=== PATIENT | male | born 1930 | race Caucasian/White ===

== ENCOUNTER → 2016-07-19 | Outpatient (CLI) | payer OTHER ==
[~2016-07-19] MED LIST: ASPIRIN81 M2; AZOR 10-40 MG1 EACH; BYSTOLIC10 MG; CYMBALTA60 MG; DEPAKOTE ER500 MG; MIRAPEX 0.250.25 M1; NEXIUM 40 MG CA40 M1; PRADAXA75 MG; PRESERVISION T1 EACH; SEPTRA DS; SIMVASTATIN20 MG; TRIGLIDE160 M1
== END ==
LOC: HYPER 06:56
DX: L89.620 Pressure ulcer of left heel, unstageable (principal); L97.821 Non-pressure chronic ulcer of other part of left lower leg limited to breakdown of skin; I10 Essential (primary) hypertension; I73.9 Peripheral vascular disease, unspecified

== ENCOUNTER → 2016-10-12 | Outpatient (CLI) | payer OTHER | LOC: HYPER 07:07 | DX: L89.620 Pressure ulcer of left heel, unstageable (principal); L97.521 Non-pressure chronic ulcer of other part of left foot limited to breakdown of skin; L97.501 Non-pressure chronic ulcer of other part of unspecified foot limited to breakdown of skin; I73.9 Peripheral vascular disease, unspecified; I10 Essential (primary) hypertension; I48.2 Chronic atrial fibrillation; E78.5 Hyperlipidemia, unspecified; Z85.828 Personal history of other malignant neoplasm of skin; Z87.891 Personal history of nicotine dependence ==

== ENCOUNTER → 2016-11-25 | Outpatient (CLI) | payer OTHER | LOC: HYPER 07:54 | DX: L89.620 Pressure ulcer of left heel, unstageable (principal); L97.521 Non-pressure chronic ulcer of other part of left foot limited to breakdown of skin; L97.821 Non-pressure chronic ulcer of other part of left lower leg limited to breakdown of skin; I73.9 Peripheral vascular disease, unspecified; I10 Essential (primary) hypertension; I48.91 Unspecified atrial fibrillation; E78.5 Hyperlipidemia, unspecified; Z85.828 Personal history of other malignant neoplasm of skin; Z87.891 Personal history of nicotine dependence ==

== ENCOUNTER → 2016-12-23 | Outpatient (CLI) | payer OTHER | LOC: HYPER 08:21 | DX: L97.521 Non-pressure chronic ulcer of other part of left foot limited to breakdown of skin (principal); L89.620 Pressure ulcer of left heel, unstageable; I73.9 Peripheral vascular disease, unspecified; I10 Essential (primary) hypertension; I48.91 Unspecified atrial fibrillation; E78.5 Hyperlipidemia, unspecified; Z87.891 Personal history of nicotine dependence; Z85.828 Personal history of other malignant neoplasm of skin ==

== ENCOUNTER → 2017-01-20 | Outpatient (CLI) | payer OTHER | LOC: HYPER 08:06 | DX: L97.821 Non-pressure chronic ulcer of other part of left lower leg limited to breakdown of skin (principal); L97.521 Non-pressure chronic ulcer of other part of left foot limited to breakdown of skin; L89.620 Pressure ulcer of left heel, unstageable; I10 Essential (primary) hypertension; I73.9 Peripheral vascular disease, unspecified; I48.91 Unspecified atrial fibrillation; E78.5 Hyperlipidemia, unspecified; Z85.828 Personal history of other malignant neoplasm of skin; Z87.891 Personal history of nicotine dependence ==

== ENCOUNTER → 2017-02-17 | Outpatient (CLI) | payer OTHER | LOC: HYPER 08:13 | DX: L97.521 Non-pressure chronic ulcer of other part of left foot limited to breakdown of skin (principal); L97.821 Non-pressure chronic ulcer of other part of left lower leg limited to breakdown of skin; L89.620 Pressure ulcer of left heel, unstageable; I10 Essential (primary) hypertension; I73.9 Peripheral vascular disease, unspecified; I48.91 Unspecified atrial fibrillation; E78.5 Hyperlipidemia, unspecified; Z87.891 Personal history of nicotine dependence ==

== ENCOUNTER → 2017-03-14 | Outpatient (CLI) | payer OTHER | LOC: RAD 15:04 | DX: M25.551 Pain in right hip (principal) ==

== ENCOUNTER → 2017-03-14 | Outpatient (CLI) | payer OTHER | LOC: HYPER 07:02 | DX: L97.821 Non-pressure chronic ulcer of other part of left lower leg limited to breakdown of skin (principal); L97.521 Non-pressure chronic ulcer of other part of left foot limited to breakdown of skin; L89.620 Pressure ulcer of left heel, unstageable; I73.9 Peripheral vascular disease, unspecified; I10 Essential (primary) hypertension; I48.91 Unspecified atrial fibrillation; E78.5 Hyperlipidemia, unspecified; Z87.891 Personal history of nicotine dependence ==

== ENCOUNTER → 2017-04-11 | Outpatient (CLI) | payer OTHER | LOC: HYPER 07:18 | DX: L97.521 Non-pressure chronic ulcer of other part of left foot limited to breakdown of skin (principal); L89.620 Pressure ulcer of left heel, unstageable; I73.9 Peripheral vascular disease, unspecified; I10 Essential (primary) hypertension; I48.91 Unspecified atrial fibrillation; E78.5 Hyperlipidemia, unspecified ==

== ENCOUNTER → 2017-05-16 | Outpatient (CLI) | payer OTHER | LOC: HYPER 06:43 | DX: L97.521 Non-pressure chronic ulcer of other part of left foot limited to breakdown of skin (principal); L89.620 Pressure ulcer of left heel, unstageable; I10 Essential (primary) hypertension; I73.9 Peripheral vascular disease, unspecified; I48.91 Unspecified atrial fibrillation; E78.5 Hyperlipidemia, unspecified; Z85.828 Personal history of other malignant neoplasm of skin; Z87.891 Personal history of nicotine dependence ==

== ENCOUNTER → 2017-07-20 | Outpatient (CLI) | payer OTHER ==
[~2017-07-20] MED LIST changes: +ACIDOPHILUS1 EAC2 PO; +CYMBALTA60 MG PO; +DEPAKOTE 250MG250 M1 PO; +FLOMAX0.4 MG PO; +KEFLEX500 M1 PO; +LASIX 40 MG TAB40 M2 PO; +LIPITOR 20 MG T20 M1 PO; +MAGOX 400400 MG PO; +METOPROLOL SUCC25 M1 PO; +MILK OF MA2400 MG/10 PO; +MIRAPEX0.125 MG PO; +ONDANSETRON HCL4 M2 PO; +PENTOXIFYLLINE400 MG PO; +PERCOCET 10-321 EACH PO; +PRADAXA75 MG PO; +PRESERVISION T1 EACH PO; +PROTONIX40 M1 PO; +REMERON15 MG PO; +TOPROL XL25 MG PO; +TRIGLIDE160 M1 PO; +ULTRACET TABLET1 TAB PO; +VITAMIN C500 M2 PO; +VOLTAREN GEL 1100 G2 TOP
== END ==
LOC: HYPER 06-12 08:08
DX: L89.622 Pressure ulcer of left heel, stage 2 (principal); L97.522 Non-pressure chronic ulcer of other part of left foot with fat layer exposed; L97.421 Non-pressure chronic ulcer of left heel and midfoot limited to breakdown of skin; I48.91 Unspecified atrial fibrillation; E78.5 Hyperlipidemia, unspecified; I73.9 Peripheral vascular disease, unspecified; Z87.891 Personal history of nicotine dependence

== ENCOUNTER → 2017-07-25 | Outpatient (CLI) | payer OTHER | LOC: HYPER 06:40 | DX: L97.522 Non-pressure chronic ulcer of other part of left foot with fat layer exposed (principal); L97.421 Non-pressure chronic ulcer of left heel and midfoot limited to breakdown of skin; I73.9 Peripheral vascular disease, unspecified; E78.5 Hyperlipidemia, unspecified; I10 Essential (primary) hypertension; I48.91 Unspecified atrial fibrillation; Z85.828 Personal history of other malignant neoplasm of skin; Z87.891 Personal history of nicotine dependence ==

== ENCOUNTER → 2017-08-16 | Outpatient (CLI) | payer OTHER | LOC: HYPER 06:49 | DX: L89.622 Pressure ulcer of left heel, stage 2 (principal); L97.421 Non-pressure chronic ulcer of left heel and midfoot limited to breakdown of skin; L97.521 Non-pressure chronic ulcer of other part of left foot limited to breakdown of skin; L89.891 Pressure ulcer of other site, stage 1; I73.9 Peripheral vascular disease, unspecified; I48.91 Unspecified atrial fibrillation; I10 Essential (primary) hypertension; E78.5 Hyperlipidemia, unspecified; Z85.828 Personal history of other malignant neoplasm of skin; Z87.891 Personal history of nicotine dependence ==

== ENCOUNTER → 2017-08-30 | Outpatient (CLI) | payer OTHER | LOC: HYPER 06:57 | DX: L97.521 Non-pressure chronic ulcer of other part of left foot limited to breakdown of skin (principal); L97.421 Non-pressure chronic ulcer of left heel and midfoot limited to breakdown of skin; I73.9 Peripheral vascular disease, unspecified; I48.91 Unspecified atrial fibrillation; I10 Essential (primary) hypertension; E78.5 Hyperlipidemia, unspecified; Z85.828 Personal history of other malignant neoplasm of skin; Z72.89 Other problems related to lifestyle ==

== ENCOUNTER → 2017-09-14 | Outpatient (CLI) | payer OTHER | LOC: HYPER 07:05 | DX: L97.522 Non-pressure chronic ulcer of other part of left foot with fat layer exposed (principal); L97.421 Non-pressure chronic ulcer of left heel and midfoot limited to breakdown of skin; I73.9 Peripheral vascular disease, unspecified; I48.91 Unspecified atrial fibrillation; I10 Essential (primary) hypertension; E78.5 Hyperlipidemia, unspecified; Z85.828 Personal history of other malignant neoplasm of skin; Z87.891 Personal history of nicotine dependence; Z72.89 Other problems related to lifestyle ==

== ENCOUNTER → 2017-09-29 | Outpatient (CLI) | payer OTHER | LOC: HYPER 07:50 | DX: L89.622 Pressure ulcer of left heel, stage 2 (principal); L89.520 Pressure ulcer of left ankle, unstageable; L97.522 Non-pressure chronic ulcer of other part of left foot with fat layer exposed; L97.421 Non-pressure chronic ulcer of left heel and midfoot limited to breakdown of skin; I73.9 Peripheral vascular disease, unspecified; Z47.89 Encounter for other orthopedic aftercare; I48.91 Unspecified atrial fibrillation; I12.9 Hypertensive chronic kidney disease with stage 1 through stage 4 chronic kidney disease, or unspecified chronic kidney disease; N18.3 Chronic kidney disease, stage 3 (moderate); K21.9 Gastro-esophageal reflux disease without esophagitis; Z85.828 Personal history of other malignant neoplasm of skin; Z87.891 Personal history of nicotine dependence ==

== ENCOUNTER → 2017-10-10 | Outpatient (CLI) | payer OTHER | LOC: HYPER 08:00 | DX: L89.622 Pressure ulcer of left heel, stage 2 (principal); L89.520 Pressure ulcer of left ankle, unstageable; L97.522 Non-pressure chronic ulcer of other part of left foot with fat layer exposed; L97.421 Non-pressure chronic ulcer of left heel and midfoot limited to breakdown of skin; L84 Corns and callosities; I12.9 Hypertensive chronic kidney disease with stage 1 through stage 4 chronic kidney disease, or unspecified chronic kidney disease; N18.3 Chronic kidney disease, stage 3 (moderate); I48.91 Unspecified atrial fibrillation; E78.5 Hyperlipidemia, unspecified; I73.9 Peripheral vascular disease, unspecified; K21.9 Gastro-esophageal reflux disease without esophagitis; Z87.891 Personal history of nicotine dependence ==

== ENCOUNTER → 2017-11-08 | Outpatient (CLI) | payer OTHER | LOC: HYPER 10-24 06:55 | DX: I70.244 Atherosclerosis of native arteries of left leg with ulceration of heel and midfoot (principal); L97.421 Non-pressure chronic ulcer of left heel and midfoot limited to breakdown of skin; L97.522 Non-pressure chronic ulcer of other part of left foot with fat layer exposed; I70.243 Atherosclerosis of native arteries of left leg with ulceration of ankle; L97.321 Non-pressure chronic ulcer of left ankle limited to breakdown of skin; L84 Corns and callosities; I12.9 Hypertensive chronic kidney disease with stage 1 through stage 4 chronic kidney disease, or unspecified chronic kidney disease; N18.3 Chronic kidney disease, stage 3 (moderate); I48.2 Chronic atrial fibrillation; E78.5 Hyperlipidemia, unspecified; K21.9 Gastro-esophageal reflux disease without esophagitis; Z85.828 Personal history of other malignant neoplasm of skin; Z87.891 Personal history of nicotine dependence; Z47.89 Encounter for other orthopedic aftercare ==

== ENCOUNTER → 2017-11-16 | Outpatient (CLI) | payer OTHER | LOC: HYPER 06:51 | DX: L97.522 Non-pressure chronic ulcer of other part of left foot with fat layer exposed (principal); L97.421 Non-pressure chronic ulcer of left heel and midfoot limited to breakdown of skin; I73.9 Peripheral vascular disease, unspecified; I12.9 Hypertensive chronic kidney disease with stage 1 through stage 4 chronic kidney disease, or unspecified chronic kidney disease; N18.3 Chronic kidney disease, stage 3 (moderate); I48.91 Unspecified atrial fibrillation; K21.9 Gastro-esophageal reflux disease without esophagitis; Z87.891 Personal history of nicotine dependence ==

== ENCOUNTER → 2017-11-29 | Outpatient (CLI) | payer OTHER | LOC: HYPER 07:09 | DX: I70.244 Atherosclerosis of native arteries of left leg with ulceration of heel and midfoot (principal); L97.421 Non-pressure chronic ulcer of left heel and midfoot limited to breakdown of skin; L97.522 Non-pressure chronic ulcer of other part of left foot with fat layer exposed; I70.243 Atherosclerosis of native arteries of left leg with ulceration of ankle; L97.321 Non-pressure chronic ulcer of left ankle limited to breakdown of skin; I48.91 Unspecified atrial fibrillation; E78.5 Hyperlipidemia, unspecified; K21.9 Gastro-esophageal reflux disease without esophagitis; I12.9 Hypertensive chronic kidney disease with stage 1 through stage 4 chronic kidney disease, or unspecified chronic kidney disease; N18.3 Chronic kidney disease, stage 3 (moderate); Z47.89 Encounter for other orthopedic aftercare; Z87.891 Personal history of nicotine dependence ==

== ENCOUNTER → 2017-12-13 | Outpatient (CLI) | payer OTHER | LOC: HYPER 06:49 | DX: I70.244 Atherosclerosis of native arteries of left leg with ulceration of heel and midfoot (principal); L97.421 Non-pressure chronic ulcer of left heel and midfoot limited to breakdown of skin; L97.522 Non-pressure chronic ulcer of other part of left foot with fat layer exposed; I70.243 Atherosclerosis of native arteries of left leg with ulceration of ankle; L97.321 Non-pressure chronic ulcer of left ankle limited to breakdown of skin; L84 Corns and callosities; I12.9 Hypertensive chronic kidney disease with stage 1 through stage 4 chronic kidney disease, or unspecified chronic kidney disease; N18.3 Chronic kidney disease, stage 3 (moderate); E78.5 Hyperlipidemia, unspecified; K21.9 Gastro-esophageal reflux disease without esophagitis; Z47.89 Encounter for other orthopedic aftercare; Z85.828 Personal history of other malignant neoplasm of skin; Z87.891 Personal history of nicotine dependence ==

== ENCOUNTER → 2017-12-26 | Outpatient (CLI) | payer OTHER | LOC: HYPER 06:51 | DX: I70.245 Atherosclerosis of native arteries of left leg with ulceration of other part of foot (principal); L97.422 Non-pressure chronic ulcer of left heel and midfoot with fat layer exposed; L97.522 Non-pressure chronic ulcer of other part of left foot with fat layer exposed; I70.243 Atherosclerosis of native arteries of left leg with ulceration of ankle; L97.321 Non-pressure chronic ulcer of left ankle limited to breakdown of skin; I12.9 Hypertensive chronic kidney disease with stage 1 through stage 4 chronic kidney disease, or unspecified chronic kidney disease; N18.3 Chronic kidney disease, stage 3 (moderate); I48.91 Unspecified atrial fibrillation; E78.5 Hyperlipidemia, unspecified; K21.9 Gastro-esophageal reflux disease without esophagitis; Z87.891 Personal history of nicotine dependence; Z47.89 Encounter for other orthopedic aftercare ==

== ENCOUNTER → 2018-01-11 | Outpatient (CLI) | payer OTHER | LOC: HYPER 06:49 | DX: I70.244 Atherosclerosis of native arteries of left leg with ulceration of heel and midfoot (principal); L97.421 Non-pressure chronic ulcer of left heel and midfoot limited to breakdown of skin; I70.245 Atherosclerosis of native arteries of left leg with ulceration of other part of foot; L97.521 Non-pressure chronic ulcer of other part of left foot limited to breakdown of skin; I70.243 Atherosclerosis of native arteries of left leg with ulceration of ankle; L97.321 Non-pressure chronic ulcer of left ankle limited to breakdown of skin; S91.101A Unspecified open wound of right great toe without damage to nail, initial encounter; S81.801A Unspecified open wound, right lower leg, initial encounter; S51.002A Unspecified open wound of left elbow, initial encounter; I13.10 Hypertensive heart and chronic kidney disease without heart failure, with stage 1 through stage 4 chronic kidney disease, or unspecified chronic kidney disease; N18.3 Chronic kidney disease, stage 3 (moderate); L84 Corns and callosities; I48.91 Unspecified atrial fibrillation; E78.5 Hyperlipidemia, unspecified; K21.9 Gastro-esophageal reflux disease without esophagitis; Z85.828 Personal history of other malignant neoplasm of skin; Z87.891 Personal history of nicotine dependence; X58.XXXA Exposure to other specified factors, initial encounter; Y93.89 Activity, other specified; Y92.89 Other specified places as the place of occurrence of the external cause; Y99.8 Other external cause status ==

== ENCOUNTER → 2018-03-28 | Outpatient (CLI) | payer OTHER | LOC: HYPER 07:11 | DX: I70.244 Atherosclerosis of native arteries of left leg with ulceration of heel and midfoot (principal); L97.422 Non-pressure chronic ulcer of left heel and midfoot with fat layer exposed; I70.245 Atherosclerosis of native arteries of left leg with ulceration of other part of foot; L97.522 Non-pressure chronic ulcer of other part of left foot with fat layer exposed; I70.243 Atherosclerosis of native arteries of left leg with ulceration of ankle; L97.321 Non-pressure chronic ulcer of left ankle limited to breakdown of skin; L97.812 Non-pressure chronic ulcer of other part of right lower leg with fat layer exposed; L97.512 Non-pressure chronic ulcer of other part of right foot with fat layer exposed; I48.2 Chronic atrial fibrillation; I12.9 Hypertensive chronic kidney disease with stage 1 through stage 4 chronic kidney disease, or unspecified chronic kidney disease; N18.3 Chronic kidney disease, stage 3 (moderate); E78.5 Hyperlipidemia, unspecified; G25.81 Restless legs syndrome; K21.9 Gastro-esophageal reflux disease without esophagitis; L84 Corns and callosities; Z87.891 Personal history of nicotine dependence ==

== ENCOUNTER → 2018-04-25 | Outpatient (CLI) | payer OTHER | LOC: HYPER 06:46 | DX: I70.244 Atherosclerosis of native arteries of left leg with ulceration of heel and midfoot (principal); L97.422 Non-pressure chronic ulcer of left heel and midfoot with fat layer exposed; I70.245 Atherosclerosis of native arteries of left leg with ulceration of other part of foot; L97.522 Non-pressure chronic ulcer of other part of left foot with fat layer exposed; I70.243 Atherosclerosis of native arteries of left leg with ulceration of ankle; L97.321 Non-pressure chronic ulcer of left ankle limited to breakdown of skin; L97.512 Non-pressure chronic ulcer of other part of right foot with fat layer exposed; L97.812 Non-pressure chronic ulcer of other part of right lower leg with fat layer exposed; L84 Corns and callosities; E78.5 Hyperlipidemia, unspecified; I48.2 Chronic atrial fibrillation; I10 Essential (primary) hypertension; G25.81 Restless legs syndrome; K21.9 Gastro-esophageal reflux disease without esophagitis; N18.3 Chronic kidney disease, stage 3 (moderate); Z87.891 Personal history of nicotine dependence ==

== ENCOUNTER → 2018-05-23 | Outpatient (CLI) | payer OTHER | LOC: HYPER 06:53 | DX: I70.245 Atherosclerosis of native arteries of left leg with ulceration of other part of foot (principal); L97.522 Non-pressure chronic ulcer of other part of left foot with fat layer exposed; I70.235 Atherosclerosis of native arteries of right leg with ulceration of other part of foot; L97.512 Non-pressure chronic ulcer of other part of right foot with fat layer exposed; I70.244 Atherosclerosis of native arteries of left leg with ulceration of heel and midfoot; L97.422 Non-pressure chronic ulcer of left heel and midfoot with fat layer exposed; I70.243 Atherosclerosis of native arteries of left leg with ulceration of ankle; L97.322 Non-pressure chronic ulcer of left ankle with fat layer exposed; L97.812 Non-pressure chronic ulcer of other part of right lower leg with fat layer exposed; N18.3 Chronic kidney disease, stage 3 (moderate); S91.109D Unspecified open wound of unspecified toe(s) without damage to nail, subsequent encounter; S80.812D Abrasion, left lower leg, subsequent encounter; I48.2 Chronic atrial fibrillation; E78.5 Hyperlipidemia, unspecified; I12.9 Hypertensive chronic kidney disease with stage 1 through stage 4 chronic kidney disease, or unspecified chronic kidney disease; K21.9 Gastro-esophageal reflux disease without esophagitis; Z87.891 Personal history of nicotine dependence; X58.XXXD Exposure to other specified factors, subsequent encounter ==

== ENCOUNTER → 2018-07-04 | Outpatient (CLI) | payer OTHER | LOC: HYPER 06:38 | DX: I70.244 Atherosclerosis of native arteries of left leg with ulceration of heel and midfoot (principal); L97.422 Non-pressure chronic ulcer of left heel and midfoot with fat layer exposed; I70.245 Atherosclerosis of native arteries of left leg with ulceration of other part of foot; L97.522 Non-pressure chronic ulcer of other part of left foot with fat layer exposed; I70.243 Atherosclerosis of native arteries of left leg with ulceration of ankle; L97.321 Non-pressure chronic ulcer of left ankle limited to breakdown of skin; L97.512 Non-pressure chronic ulcer of other part of right foot with fat layer exposed; S91.002A Unspecified open wound, left ankle, initial encounter; L84 Corns and callosities; E78.5 Hyperlipidemia, unspecified; G25.81 Restless legs syndrome; I12.9 Hypertensive chronic kidney disease with stage 1 through stage 4 chronic kidney disease, or unspecified chronic kidney disease; N18.3 Chronic kidney disease, stage 3 (moderate); I48.2 Chronic atrial fibrillation; K21.9 Gastro-esophageal reflux disease without esophagitis; Z87.891 Personal history of nicotine dependence; X58.XXXA Exposure to other specified factors, initial encounter; Y93.89 Activity, other specified; Y92.89 Other specified places as the place of occurrence of the external cause; Y99.8 Other external cause status ==

== ENCOUNTER → 2018-08-15 | Outpatient (CLI) | payer OTHER | LOC: HYPER 08-01 15:48 | DX: I70.244 Atherosclerosis of native arteries of left leg with ulceration of heel and midfoot (principal); L97.422 Non-pressure chronic ulcer of left heel and midfoot with fat layer exposed; I70.245 Atherosclerosis of native arteries of left leg with ulceration of other part of foot; L97.526 Non-pressure chronic ulcer of other part of left foot with bone involvement without evidence of necrosis; L97.812 Non-pressure chronic ulcer of other part of right lower leg with fat layer exposed; I70.243 Atherosclerosis of native arteries of left leg with ulceration of ankle; L97.321 Non-pressure chronic ulcer of left ankle limited to breakdown of skin; L97.516 Non-pressure chronic ulcer of other part of right foot with bone involvement without evidence of necrosis; L84 Corns and callosities; E78.5 Hyperlipidemia, unspecified; G25.81 Restless legs syndrome; I12.9 Hypertensive chronic kidney disease with stage 1 through stage 4 chronic kidney disease, or unspecified chronic kidney disease; N18.3 Chronic kidney disease, stage 3 (moderate); I48.2 Chronic atrial fibrillation; K21.9 Gastro-esophageal reflux disease without esophagitis; Z87.891 Personal history of nicotine dependence ==

== ENCOUNTER → 2018-09-12 | Outpatient (CLI) | payer OTHER | LOC: HYPER 06:40 | DX: I70.244 Atherosclerosis of native arteries of left leg with ulceration of heel and midfoot (principal); L97.422 Non-pressure chronic ulcer of left heel and midfoot with fat layer exposed; I70.245 Atherosclerosis of native arteries of left leg with ulceration of other part of foot; L97.522 Non-pressure chronic ulcer of other part of left foot with fat layer exposed; I70.243 Atherosclerosis of native arteries of left leg with ulceration of ankle; L97.321 Non-pressure chronic ulcer of left ankle limited to breakdown of skin; L97.512 Non-pressure chronic ulcer of other part of right foot with fat layer exposed; L97.812 Non-pressure chronic ulcer of other part of right lower leg with fat layer exposed; S51.011A Laceration without foreign body of right elbow, initial encounter; L84 Corns and callosities; I48.2 Chronic atrial fibrillation; E78.5 Hyperlipidemia, unspecified; I12.9 Hypertensive chronic kidney disease with stage 1 through stage 4 chronic kidney disease, or unspecified chronic kidney disease; N18.9 Chronic kidney disease, unspecified; K21.9 Gastro-esophageal reflux disease without esophagitis; R56.9 Unspecified convulsions; Z87.891 Personal history of nicotine dependence; X58.XXXA Exposure to other specified factors, initial encounter; Y93.89 Activity, other specified; Y92.89 Other specified places as the place of occurrence of the external cause; Y99.8 Other external cause status; S61.212A Laceration without foreign body of right middle finger without damage to nail, initial encounter ==

== ENCOUNTER → 2018-10-10 | Outpatient (CLI) | payer OTHER | LOC: HYPER 07:03 | DX: I70.244 Atherosclerosis of native arteries of left leg with ulceration of heel and midfoot (principal); L97.422 Non-pressure chronic ulcer of left heel and midfoot with fat layer exposed; L97.526 Non-pressure chronic ulcer of other part of left foot with bone involvement without evidence of necrosis; L97.512 Non-pressure chronic ulcer of other part of right foot with fat layer exposed; S51.811D Laceration without foreign body of right forearm, subsequent encounter; S90.424D Blister (nonthermal), right lesser toe(s), subsequent encounter; E78.5 Hyperlipidemia, unspecified; I48.2 Chronic atrial fibrillation; I12.9 Hypertensive chronic kidney disease with stage 1 through stage 4 chronic kidney disease, or unspecified chronic kidney disease; N18.3 Chronic kidney disease, stage 3 (moderate); G25.81 Restless legs syndrome; H40.9 Unspecified glaucoma; K21.9 Gastro-esophageal reflux disease without esophagitis; Z87.891 Personal history of nicotine dependence; Z90.49 Acquired absence of other specified parts of digestive tract; X58.XXXD Exposure to other specified factors, subsequent encounter ==

== ENCOUNTER → 2018-11-13 | Outpatient (CLI) | payer OTHER | LOC: HYPER 06:14 | DX: I70.244 Atherosclerosis of native arteries of left leg with ulceration of heel and midfoot (principal); L97.422 Non-pressure chronic ulcer of left heel and midfoot with fat layer exposed; I70.245 Atherosclerosis of native arteries of left leg with ulceration of other part of foot; L97.526 Non-pressure chronic ulcer of other part of left foot with bone involvement without evidence of necrosis; I70.235 Atherosclerosis of native arteries of right leg with ulceration of other part of foot; L97.516 Non-pressure chronic ulcer of other part of right foot with bone involvement without evidence of necrosis; S91.104A Unspecified open wound of right lesser toe(s) without damage to nail, initial encounter; L84 Corns and callosities; I12.9 Hypertensive chronic kidney disease with stage 1 through stage 4 chronic kidney disease, or unspecified chronic kidney disease; N18.3 Chronic kidney disease, stage 3 (moderate); E78.5 Hyperlipidemia, unspecified; I48.2 Chronic atrial fibrillation; G25.81 Restless legs syndrome; H40.9 Unspecified glaucoma; K21.9 Gastro-esophageal reflux disease without esophagitis; Z87.891 Personal history of nicotine dependence; X58.XXXA Exposure to other specified factors, initial encounter; Y93.89 Activity, other specified; Y92.89 Other specified places as the place of occurrence of the external cause; Y99.8 Other external cause status ==

== ENCOUNTER → 2018-12-25 | Outpatient (CLI) | payer OTHER | LOC: HYPER 06:37 | DX: I70.244 Atherosclerosis of native arteries of left leg with ulceration of heel and midfoot (principal); L97.422 Non-pressure chronic ulcer of left heel and midfoot with fat layer exposed; I70.245 Atherosclerosis of native arteries of left leg with ulceration of other part of foot; L97.522 Non-pressure chronic ulcer of other part of left foot with fat layer exposed; L97.512 Non-pressure chronic ulcer of other part of right foot with fat layer exposed; N18.3 Chronic kidney disease, stage 3 (moderate); L84 Corns and callosities; I48.2 Chronic atrial fibrillation; E78.5 Hyperlipidemia, unspecified; K21.9 Gastro-esophageal reflux disease without esophagitis; R56.9 Unspecified convulsions; Z87.891 Personal history of nicotine dependence ==

== ENCOUNTER → 2019-02-06 | Outpatient (CLI) | payer OTHER | LOC: HYPER 07:03 | DX: I70.245 Atherosclerosis of native arteries of left leg with ulceration of other part of foot (principal); L97.522 Non-pressure chronic ulcer of other part of left foot with fat layer exposed; I70.235 Atherosclerosis of native arteries of right leg with ulceration of other part of foot; L97.512 Non-pressure chronic ulcer of other part of right foot with fat layer exposed; I70.244 Atherosclerosis of native arteries of left leg with ulceration of heel and midfoot; L97.422 Non-pressure chronic ulcer of left heel and midfoot with fat layer exposed; I12.9 Hypertensive chronic kidney disease with stage 1 through stage 4 chronic kidney disease, or unspecified chronic kidney disease; N18.3 Chronic kidney disease, stage 3 (moderate); L84 Corns and callosities; I48.2 Chronic atrial fibrillation; K21.9 Gastro-esophageal reflux disease without esophagitis; E78.5 Hyperlipidemia, unspecified; R56.9 Unspecified convulsions; Z87.891 Personal history of nicotine dependence ==